=== PATIENT | male | born 1990 | race Two or more races ===

== ENCOUNTER 2019-12-20 19:04 | Emergency (ER) | payer MEDICAID ==
[~2019-12-20] VITALS: Ht 182.9 cm; Wt 102.0 kg
[2019-12-20 19:10] VITALS: BP 144/93
[2019-12-20] MEDS ORDERED: MAALOX/HYOSCYAMINE/LIDOCAINE 45 ML BTL PO ONE (20:00)
[2019-12-20] MEDS ORDERED: FAMOTIDINE 20 MG TABLET PO ONE (20:00)
[2019-12-20] MEDS ORDERED: FAMOTIDINE 20 MG TABLET ONE (20:10)
[2019-12-20] MEDS ORDERED: MAALOX/HYOSCYAMINE/LIDOCAINE 45 ML BTL ONE (20:10)
--- NOTE | 2019-12-20 20:17 | NUR ---
FSBS 105, PT MEDICATED PER SEP 5 RIGHTS VERIFIED. NADN AT BEDSIDE
--- NOTE | 2019-12-20 20:50 | NUR ---
PT REPORTS FEELING 100% BETTER AND NO LONGER HAS BAD TASTE IN MOUTH. UPDATED
--- NOTE | 2019-12-20 21:09 | NUR ---
Patient/Caregiver given discharge instructions and they have confirmed that they understand the instructions. Patient ambulatory with steady gait.
== END 2019-12-20 21:10 | disposition home or self-care (01) ==
LOC: ED 19:30
DX: K21.9 Gastro-esophageal reflux disease without esophagitis (principal); J02.9 Acute pharyngitis, unspecified
CPT/HCPCS: 82962; 99283